=== PATIENT | male | born 1960 | race Caucasian/White ===

== ENCOUNTER 2021-08-28 07:43 | Emergency (ER) | payer BC ==
[2021-08-28] MEDS ORDERED: Boostrix 0.5 ML (Tdap) VIAL ONE (08:16)
[2021-08-28] MEDS ORDERED: Lidocaine 1% PF 5 ML VIAL ONE ×2 (08:21→08:30)
[2021-08-28] MEDS ORDERED: Bacitracin 1 PK ONE (08:53)
== END 2021-08-28 08:59 | disposition home or self-care (01) ==
LOC: BURERS 07:43
DX: S81.812A Laceration without foreign body, left lower leg, initial encounter (principal); I10 Essential (primary) hypertension; Z23 Encounter for immunization; W22.8XXA Striking against or struck by other objects, initial encounter
CPT/HCPCS: 12002; 90471; 90715

== ENCOUNTER 2024-09-14 08:13 | Emergency (ER) | payer BC ==
[2024-09-14] MEDS ORDERED: Acetaminophen 325 MG TAB ONE (08:46)
[2024-09-14 08:53] LABS: #Basophils 0.0 thou/uL (0.0-0.2); #Eosinophils 0.0 thou/uL (0.0-0.7); #Lymphocytes 0.7 thou/uL (1.20-3.40); #Monocytes 0.7 thou/uL (0.11-0.59); #Neutrophils 4.8 thou/uL (1.40-6.50); %Basophils 0.5 % (0.0-1.0); %Eosinophils 0.4 % (0.0-10.0); %Lymphocytes 11.0 % (21.0-51.0); %Monocytes 10.9 % (0.0-10.0); %Neutrophils 77.2 % (42.0-75.0); Hematocrit 34.5 % (42.0-52.0); Hemoglobin 12.4 g/dL (14.0-18.0); Mean Corpuscular Hemoglobin 31.6 pg (27.0-31.0); Mean Corpuscular Volume 88.1 fl (78.0-98.0); Platelet Count 119 10x3/uL (130-400); Red Blood Cell (RBC) Count 3.91 mill/uL (4.70-6.10); White Blood Cell (WBC) Count 6.2 10x3/uL (4.8-10.8)
[2024-09-14 08:54] LABS: MDiff Complete? YES
[2024-09-14 09:10] LABS: ALT (SGPT) 55 U/L (Less than 45); AST (SGOT) 50 U/L (11-34); Albumin 3.5 g/dL (3.1-4.5); Alkaline Phosphatase 166 U/L (40-110); Anion Gap 16 mmol/L (10-20); BUN (Urea Nitrogen) 15 mg/dL (8.4-25.7); Bilirubin, Total 1.6 mg/dL (0.3-1.2); Calc. Creatinine Clearance 0 mL/min (70-130); Calcium 9.2 mg/dL (7.8-10.44); Carbon Dioxide 21 mmol/L (23-31); Chloride 103 mmol/L (98-107); Globulin 3.2 g/dL (2.4-3.5); Glucose 133 mg/dL (80-115); Lipase 8 U/L (8-78); Magnesium 1.7 mg/dL (1.6-2.6); Potassium 3.4 mmol/L (3.5-5.1); Sodium 137 mmol/L (136-145)
== END 2024-09-14 09:49 | disposition home or self-care (01) ==
LOC: BURERS 08:13
DX: U07.1 COVID-19 (principal); I10 Essential (primary) hypertension
CPT/HCPCS: 71045; 80053; 83605; 83690; 83735; 85025; 87426; 93005; 96360

== ENCOUNTER 2024-12-04 18:07 | Emergency (ER) | payer BC ==
[2024-12-04 18:44] LABS: #Basophils 0.1 thou/uL (0.0-0.2); #Eosinophils 0.1 thou/uL (0.0-0.7); #Lymphocytes 1.0 thou/uL (1.20-3.40); #Monocytes 0.2 thou/uL (0.11-0.59); #Neutrophils 3.5 thou/uL (1.40-6.50); %Basophils 1.4 % (0.0-1.0); %Eosinophils 2.3 % (0.0-10.0); %Lymphocytes 19.6 % (21.0-51.0); %Monocytes 3.7 % (0.0-10.0); %Neutrophils 73.0 % (42.0-75.0); Hematocrit 30.2 % (42.0-52.0); Hemoglobin 11.5 g/dL (14.0-18.0); Mean Corpuscular Hemoglobin 31.4 pg (27.0-31.0); Mean Corpuscular Volume 82.6 fl (78.0-98.0); Platelet Count 86 10x3/uL (130-400); Red Blood Cell (RBC) Count 3.66 mill/uL (4.70-6.10); White Blood Cell (WBC) Count 4.8 10x3/uL (4.8-10.8)
[2024-12-04 18:45] LABS: MDiff Complete? YES
[2024-12-04 18:56] LABS: ALT (SGPT) 24 U/L (Less than 45); AST (SGOT) 34 U/L (11-34); Albumin 3.0 g/dL (3.1-4.5); Alkaline Phosphatase 137 U/L (40-110); Anion Gap 15 mmol/L (10-20); BUN (Urea Nitrogen) 7 mg/dL (8.4-25.7); Bilirubin, Total 0.7 mg/dL (0.3-1.2); Calc. Creatinine Clearance 0 mL/min (70-130); Calcium 8.3 mg/dL (7.8-10.44); Carbon Dioxide 25 mmol/L (23-31); Chloride 105 mmol/L (98-107); Globulin 2.9 g/dL (2.4-3.5); Glucose 116 mg/dL (80-115); Potassium 3.4 mmol/L (3.5-5.1); Sodium 142 mmol/L (136-145)
[2024-12-04 18:57] LABS: Troponin I 0.024 ng/mL (< 0.028)
== END 2024-12-04 19:12 | disposition home or self-care (01) ==
LOC: BURERS 18:07
DX: I10 Essential (primary) hypertension (principal); Z79.899 Other long term (current) drug therapy
CPT/HCPCS: 71046; 80053; 83880; 84484; 85025; 93005; 94760

== ENCOUNTER 2024-12-20 09:12 | Emergency (ER) | payer BC ==
[2024-12-20 09:38] LABS: #Basophils 0.0 thou/uL (0.0-0.2); #Eosinophils 0.0 thou/uL (0.0-0.7); #Lymphocytes 0.8 thou/uL (1.20-3.40); #Monocytes 0.0 thou/uL (0.11-0.59); #Neutrophils 2.5 thou/uL (1.40-6.50); %Basophils 0.0 % (0.0-1.0); %Eosinophils 1.2 % (0.0-10.0); %Lymphocytes 23.8 % (21.0-51.0); %Monocytes 0.1 % (0.0-10.0); %Neutrophils 75.0 % (42.0-75.0); Hematocrit 33.3 % (42.0-52.0); Hemoglobin 11.3 g/dL (14.0-18.0); Mean Corpuscular Hemoglobin 31.5 pg (27.0-31.0); Mean Corpuscular Volume 92.5 fl (78.0-98.0); Platelet Count 113 10x3/uL (130-400); Red Blood Cell (RBC) Count 3.60 mill/uL (4.70-6.10); White Blood Cell (WBC) Count 3.3 10x3/uL (4.8-10.8)
[2024-12-20] MEDS ORDERED: Aspirin Chewable 81 MG TAB ONE (09:42)
[2024-12-20] MEDS ORDERED: Ketorolac Tromethamine 30 MG (1 mL) VIAL ONE (09:42)
[2024-12-20 09:48] LABS: ALT (SGPT) 93 U/L (Less than 45); AST (SGOT) 238 U/L (11-34); Albumin 2.7 g/dL (3.1-4.5); Alkaline Phosphatase 264 U/L (40-110); Anion Gap 14 mmol/L (10-20); BUN (Urea Nitrogen) 8 mg/dL (8.4-25.7); Bilirubin, Total 1.4 mg/dL (0.3-1.2); Calc. Creatinine Clearance 0 mL/min (70-130); Calcium 8.9 mg/dL (7.8-10.44); Carbon Dioxide 27 mmol/L (23-31); Chloride 104 mmol/L (98-107); Globulin 3.0 g/dL (2.4-3.5); Glucose 118 mg/dL (80-115); Potassium 3.5 mmol/L (3.5-5.1); Sodium 141 mmol/L (136-145)
[2024-12-20 09:49] LABS: Troponin I Less than 0.010 ng/mL (< 0.028)
== END 2024-12-20 10:35 | disposition home or self-care (01) ==
LOC: BURERS 09:12
DX: R07.89 Other chest pain (principal); I10 Essential (primary) hypertension; Z79.899 Other long term (current) drug therapy
CPT/HCPCS: 71046; 80053; 83880; 84484; 85025; 93005; 94760; 96374; J1885